=== PATIENT | female | born 1945 | race Caucasian/White ===

== ENCOUNTER 2020-07-11 12:15 | Day surgery (SDC) | payer MEDICARE, MEDICAID ==
[~2020-07-11] VITALS: Ht 157.5 cm; Wt 57.4 kg
[2020-07-11] VITALS (11 sets, daily range): BP systolic 110–142; BP diastolic 55–88
[2020-07-11] MEDS ORDERED: famotidine 20mg tablet PO ONE (12:44)
[2020-07-11] MEDS ORDERED: ringers solution, lacted 1,000 ML IV SCH ×2 (12:44→14:55)
[2020-07-11] MEDS ORDERED: ceFAZolin 1,000 MG in NS 50ML IVPB IV ONE (12:45)
[2020-07-11] MEDS ORDERED: fentaNYL/PF 50MCG/1 ML 2ML syringe ONE (14:24)
[2020-07-11] MEDS ORDERED: midazolam 2 mg/2 ml injection ONE (14:26)
[2020-07-11] MEDS ORDERED: LIDOcaine 1% W/epiNEPHrine 1:200,000 10ml vial ONE (14:36)
[2020-07-11] MEDS ORDERED: propofol inj 20 ML IV ONE ×2 (14:38→15:37)
[2020-07-11] MEDS ORDERED: ceFAZolin 1000mg inj ONE (14:38)
[2020-07-11] MEDS ORDERED: hydrocortisone sod succ/PF 100mg/2ml inj. ONE (14:38)
[2020-07-11] MEDS ORDERED: PRED20TA PO (14:46)
[2020-07-11] MEDS ORDERED: ondansetron/PF 4mg/2ml inj IV PRN (14:55)
[2020-07-11] MEDS ORDERED: morphine 4 MG/ML inj SYRINge IV PRN (14:55)
[2020-07-11] MEDS ORDERED: meperidine/PF 25mg/ml syringe IV PRN ×3 (14:55)
[2020-07-11] MEDS ORDERED: proCHLORperazine 10 MG/2 ml inj IV PRN (14:55)
[2020-07-11] MEDS ORDERED: acetaminophen 1,000mg/100ml IV 100 ML IV PRN (14:55)
[2020-07-11] MEDS ORDERED: morphine 2 MG/ML inj. syringe IV PRN (14:55)
--- NOTE | 2020-07-11 15:42 | NUR ---
RECEIVED FROM OR VIA [facility] ACCOMPANIED BY ANESTHESIOLOGIST DR SOTOMAYOR, REPORT GIVEN. PT AWAKE AND ALERT AND DENIES PAIN. 20 GAUGE PIV R AC PATENT AND RUNNING LR AT 100 ML/HR.DERMABOND TO LEFT DENOMINATIONAL INCISION CDI. SWANN, VSS, SKIN PINK AND WARM, BRISK CAP REFILL, PPULSES PALPABLE, ABD SOFT. RESTING COMFORTABLY
--- NOTE | 2020-07-11 16:21 | NUR ---
VERBAL COVID SCREEN NEGATIVE. PT DENIES ALL SYMPTOMS RELATED TO COVID AND STATES SHE HAS NOT BEEN IN CONTACT WITH ANY KNOWN COVID POSITIVE PERSONS. PT HAS NOT TRAVELED.
--- NOTE | 2020-07-11 17:12 | NUR ---
PT AWAKE AND ALERT AND DENIES PAIN. 20 GAUGE PIV R AC DC/D CATH TIP INTACT.DERMABOND TO LEFT TAOIST INCISION CDI. SWANN, VSS, SKIN PINK AND WARM, BRISK CAP REFILL, PPULSES PALPABLE, ABD SOFT. TOLERATING FLUIDS, ABLE TO DRESS SELF, VOID AND AMBULATE WITH NO ASSIST. DISCHARGE INSTRUCTIONS GIVEN AND PT VERBALIZES UNDERSTANDING. TRANSPORTED VIA WHEELCHAIR TO SPOUSE IN PRIVATE VEHICLE TO HOME.
== END 2020-07-11 17:12 | disposition home or self-care (01) ==
LOC: PAS 12:15
PROVIDERS: ATTEND Surgery
DX: M31.6 Other giant cell arteritis (principal); J45.909 Unspecified asthma, uncomplicated; G43.909 Migraine, unspecified, not intractable, without status migrainosus; Z79.899 Other long term (current) drug therapy; Z98.890 Other specified postprocedural states; Z90.49 Acquired absence of other specified parts of digestive tract; Z82.49 Family history of ischemic heart disease and other diseases of the circulatory system; Z82.3 Family history of stroke
CPT/HCPCS: 37609; 82948; 93005; J0690; J1720; J2250; J2704; J3010; J7120; A4215; A4615; A4618; A6258; A7000